=== PATIENT | female | born 1980 | race Caucasian/White ===

== ENCOUNTER 2021-08-31 10:54 | Outpatient (CLI) | payer OTHER, SELFPAY ==
--- NOTE | ~2021-08-31 | MM_ITS ---
EXAMINATION: MM screening deyvi BI w anastacio HISTORY: Screening mammogram TECHNIQUE: Craniocaudal and mediolateral oblique 3-D tomosynthesis images were obtained and synthetic 2-D images were generated. CAD analysis was submitted and interpreted. COMPARISON: 04/03/2006 BREAST PARENCHYMAL COMPOSITION: The breasts are extremely dense, which lowers the sensitivity of mamm ography. FINDINGS: There is no evidence of suspicious mass, calcification, or architectural distortion to sugg est malignancy in either breast. There has been no suspicious interval change. IMPRESSION: 1. No mammographic evidence of malignancy. 2. Recommend routine screening mammography in one year. BI-RADS Category 1: Negative Reviewed, dictated and finalized at location [facility]
== END 2021-08-31 10:55 | disposition home or self-care (01) ==
LOC: ANHIMG 10:56
PROVIDERS: PCP Physician Assistant; Visit Provider Nurse Practitioner Obstetrics & Gynecology
DX: Z12.31 Encounter for screening mammogram for malignant neoplasm of breast (principal)
CPT/HCPCS: 77063; 77067

== ENCOUNTER 2021-09-01 12:11 | Emergency (ER) | payer OTHER, SELFPAY ==
--- NOTE | ~2021-09-01 | CT_ITS ---
EXAMINATION: CT facial bones w con DATE: 09/01/2021 16:44 INDICATION: Right facial pain and swelling TECHNIQUE: Computed tomography (CT) of the facial bones and maxillofacial region was performed with 7 5 cc of Omnipaque 350 intravenous contrast. The dose-length product (DLP) was 264.93 mGy-cm. Automate d exposure control and iterative reconstruction technique were employed. COMPARISON: None. FINDINGS: There is a periapical abscess involving the right first mandibular molar. There is overlyin g soft tissue swelling of the right mandible. No soft tissue abscess is identified. No facial fractur e is identified. The visualized portions of the cervical spine are unremarkable. IMPRESSION: 1. Periapical abscess involving the right first mandibular molar with overlying soft tissue swelling. Reviewed, dictated and finalized at location [facility]
[2021-09-01 12:47] VITALS: BP 115/76; PULSE 80; RESP 18; TEMP 36.4; O2SAT 98
--- NOTE | 2021-09-01 15:25 | ED.DENTAL ---
HPI - Dental/Oral General Chief complaint: Dental/Oral Stated complaint: dental pain Time Seen by Provider: 09/01/21 13:58 Source: patient Mode of arrival: ambulatory Limitations: no limitations History of Present Illness HPI Narrative: Patient presents for evaluation of right-sided facial pain since 2200 last night. About 3 days ago she developed right lower dental pain. She thought that her symptoms were related to food stuck between her teeth. She was able to floss but did not have considerable improvement in her symptoms. She called her dentist, and was evaluated there yesterday. She indicates she had an x ray performed and there was infection noted around the site of a prior root canal. She was given scripts for augmentin and tylenol with codeine. She took her first dose of both medications and took a nap around 1600 yesterday. When she woke from sleep around 2200 she had swelling noted to the right side of her jaw. She reports nausea, particularly when she stands up. She denies any fever, chills or vomiting. She smokes about eight cigarettes per day. She states her pain level is 10/10. No additional complaints or concerns. Related Data Home Medications Medication Instructions Recorded Confirmed amoxicillin-pot clavulanate tablet 09/01/21 Allergies Allergy/AdvReac Type Severity Reaction Status Date / Time No Known Allergies Allergy Verified 09/01/21 12:50 Review of Systems Review of Systems: CONSTITUTIONAL: Denies fever, chills, or sweats. EYES: Denies visual changes, redness, or discharge. ENT: Reports right lower dental pain with right mandibular swelling. Denies rhinorrhea, congestion, sore throat, or otalgia. CARDIOVASCULAR: Denies chest pain, palpitations, or edema. RESPIRATORY: Denies cough or dyspnea. GASTROINTESTINAL: Reports nausea. Denies abdominal pain, vomiting, or diarrhea. GENITOURINARY: Denies dysuria or hematuria. SKIN: Denies rash or itching. MUSCULOSKELETAL: Denies back pain, joint pain, or myalgia. NEUROLOGIC: Denies headache, numbness, dizziness, or weakness. PSYCHIATRIC: Denies anxiety or depression. [facility] Past Medical History Medical History (Updated 09/01/21 @ 17:33 by Yakov Villanueva, ROBERT, ) No pertinent past medical history Surgical History Surgical History No pertinent past surgical history Family History Family History Mother No pertinent family history Social History Social History Smoking status: Current every day smoker Substance use: never Gender identity (if verbalized by the patient): Female Sexual Orientation (if Verbalized by the Patient): Straight or Heterosexual Spiritual care concerns: No Exam Narrative: GENERAL: Well-appearing, well-nourished, and in no acute distress. HEAD: Normocephalic, atraumatic. EYES: PERRLA and EOMI. ENT: Nares clear, no rhinorrhea or epistaxis. Mucous membranes moist. Palpable area of fluctuance adjacent to tooth #29 and tooth #30. + Trismus. Oropharynx without tonsillar hypertrophy exudate or other lesions. Bilateral TMs pearly conrad nonbulging NECK: Supple. No adenopathy or masses. No carotid bruits or JVD CHEST: Clear to auscultation. No respiratory distress. No wheezes rales or rhonchi HEART: Regular rate and rhythm. No murmur heard. Normal peripheral pulses. ABDOMEN: Soft, nontender, nondistended, normal active bowel sounds. EXTREMITIES: Normal range of motion. No edema. SKIN: Warm, dry, no rash. NEURO: No focal deficits. Alert and oriented x3. PSYCH: Normal mood and affect. Course Course Emergency Course: This is a 41-year-old female who presented with complaints of right mandibular swelling and pain. CT showed periapical abscess. I was able to drain the abscess here in the emergency department and patient tolerated well.
[2021-09-01] MEDS: HYDROcodone/acetaminophen (*CRX) 5-325 MG TABLET 2 TAB PO (15:51)
[2021-09-01 16:03] LABS: Basophils Absolute Auto 0.1 K/mm3 (0.0-0.1); Basophils Percent Auto 0.6 % (0.2-1.2); Eosinophils Percent Auto 0.3 % (0-4.4); Immature Granulocyte Absolute 0.03 K/mm3 (0.00-0.031); Immature Granulocyte Percent A 0.3 % (0-0.5); Lymphocytes Absolute Auto 1.46 K/mm3 (0.9-3.2); Lymphocytes Percent Auto 14.7 % (18.3-44.2); Mean Corpuscular HGB Conc 32.5 g/dl (32-36); Mean Corpuscular Hemoglobin 30.7 pg (26-34); Mean Corpuscular Volume 94.3 fl (80-100); Mean Platelet Volume 10.4 fl (7.4-10.4); Monocytes Absolute Auto 0.9 K/mm3 (0.1-0.6); Monocytes Percent Auto 8.9 % (2.6-8.5); Neutrophils Absolute Auto 7.5 K/mm3 (1.3-6.7); Neutrophils Percent Auto 75.2 % (45.5-73.1); Platelet Count Result 218 k/mm3 (150-375); Red Blood Count 4.24 M/mm3 (4.2-5.4)
[2021-09-01 16:13] LABS: Alanine Aminotransferase 10 U/L (4-35); Albumin Level 4.1 g/dL (3.5-5.1); Alkaline Phosphatase 96 U/L (38-126); Anion Gap 10 mmol/L (8-16); Aspartate Amino Transferase 18 U/L (14-36); Bilirubin,Total 1.1 mg/dL (0.2-1.3); Blood Urea Nitrogen 12 mg/dL (7-17); Calcium 8.8 mg/dL (8.4-10.2); Carbon Dioxide 19 mmol/L (22-30); Chloride 108 mmol/L (98-107); Estimated CRCL calculation 80 ml/min; Estimated Glomerular Filt Rate > 60; Glucose 93 mg/dL (65-110); Potassium 3.9 mmol/L (3.4-5.0); Sodium 137 mmol/L (137-145)
[2021-09-01 18:05] VITALS: PULSE 87; RESP 14
== END 2021-09-01 18:04 | disposition home or self-care (01) ==
PROVIDERS: Emergency Provider Nurse Practitioner; PCP Physician Assistant
DX: K04.7 Periapical abscess without sinus (principal); F17.200 Nicotine dependence, unspecified, uncomplicated
CPT/HCPCS: 36415; 70487; 80053; 81025; 85025; 99284; A9270; Q9967

== ENCOUNTER 2021-10-06 10:34 | Emergency (ER) | payer OTHER, SELFPAY ==
[2021-10-06 10:41] VITALS: BP 116/61; PULSE 61; RESP 16; TEMP 36.3; O2SAT 99
[2021-10-06 10:43] VITALS: BP 116/61; PULSE 61; RESP 16; TEMP 36.3; O2SAT 99
--- NOTE | 2021-10-06 10:43 | ED.DENTAL ---
HPI - Dental/Oral General Chief complaint: Dental/Oral Stated complaint: tooth pain Time Seen by Provider: 10/06/21 10:48 Mode of arrival: ambulatory Limitations: no limitations History of Present Illness HPI Narrative: 41-year-old female presents with concern for right lower tooth pain. She reports she has been having a problem with tooth #30 where she had a failed root canal . Reports she was seen by dentist approximately 1 month ago and the next day in the emergency room where she was treated for an abscess which was drained. Reports she took a course of Augmentin. Reports symptoms resolved. Reports in the same tooth she can now feel pain and a lump forming beneath the tooth in the jaw area. She reports she is planning to make an appointment with the dentist on Friday to have the tooth extracted. She reports she has been taking ibuprofen. She denies any difficulty swallowing, fever. MD Complaint: tooth pain Location: Tooth # (30) Related Data Home Medications Medication Instructions Recorded Confirmed levonorgestrel [Mirena] 1 insert INTRAUTERINE ONCE 10/06/21 10/06/21 Allergies Allergy/AdvReac Type Severity Reaction Status Date / Time No Known Allergies Allergy Verified 10/06/21 10:52 Review of Systems Review of Systems: CONSTITUTIONAL: Denies malaise, chills, sweats, or fever. EYES: Denies visual changes ENT: Denies rhinorrhea, congestion, sinus pain, otalgia or sore throat. Reports right lower dental pain CARDIOVASCULAR: Denies chest pain, palpitations RESPIRATORY: Denies cough or dyspnea. SKIN: Denies rash or itching. MUSCULOSKELETAL: Denies myalgia. NEUROLOGIC: Denies numbness, weakness, or headache. All systems reviewed & are unremarkable except as noted in HPI and below PMFSH Past Medical History Medical History (Updated 10/06/21 @ 10:56 by Aliza Rico NP) No pertinent past medical history Surgical History Surgical History No pertinent past surgical history Family History Family History Mother No pertinent family history Social History Social History Smoking status: Current every day smoker Substance use: never Gender identity (if verbalized by the patient): Female Sexual Orientation (if Verbalized by the Patient): Straight or Heterosexual Spiritual care concerns: No Comments At time of signature, agree with nursing past medical, surgical, social and family history. There is no relevant family history pertinent to the presenting complaint Exam Narrative: GENERAL: Well-appearing, well-nourished, and in no acute distress. HEAD: Normocephalic, atraumatic. EYES: PERRLA, sclera clear ENT: Nares clear, turbinates pink, no rhinorrhea or epistaxis. Mucous membranes moist. TM pearly conrad with sharp light reflex bilaterally; no tragal tenderness. Oropharynx without erythema or lesions. Tonsils not enlarged and without exudate. No missing teeth, broken teeth, caries obvious. No jaw swelling noted. No periapical abscess noted NECK: Supple. No lymphadenopathy. CHEST: No respiratory distress. Speaks in full sentences. HEART: Regular rate and rhythm. SKIN: Warm, dry, no visible rash. NEURO: Alert and oriented x3. PSYCH: Normal mood and affect Course Course Emergency Course: Patient is aware of diagnosis, understands and agrees to treatment plan. Anticipatory guidance given. Patient agrees to follow-up as directed and is aware of reasons to seek care at the emergency department. Portions of this record may have been created with voice recognition software Level of Care: Express Care Visit Vital Signs Vital signs: Vital Signs Temperature 97.4 F L 10/06/21 10:41 Pulse Rate 61 10/06/21 10:41 Respiratory Rate 16 10/06/21 10:41 Blood Pressure 116/61 10/06/21 10:41 Pulse Oximetry 99
== END 2021-10-06 11:00 | disposition home or self-care (01) ==
PROVIDERS: Emergency Provider Nurse Practitioner; PCP Physician Assistant
DX: K08.89 Other specified disorders of teeth and supporting structures (principal); F17.200 Nicotine dependence, unspecified, uncomplicated
CPT/HCPCS: 99213; G0463

== ENCOUNTER 2022-11-01 15:54 | Emergency (ER) | payer OTHER, SELFPAY ==
[2022-11-01 16:06] VITALS: BP 126/77; PULSE 70; RESP 16; TEMP 37.1; O2SAT 100
--- NOTE | 2022-11-01 16:41 | ED.EYEPROB ---
HPI - Eye Problem General Chief complaint: Eye Problems Stated complaint: Right Eye Pain Time Seen by Provider: 11/01/22 16:41 Source: patient Mode of arrival: ambulatory Limitations: no limitations History of Present Illness HPI Narrative: 42-year-old female presented for complaint of right eye redness, swelling, tenderness, and itching since yesterday. Most pain is to the lower lid. She denies foreign body, denies injury. She has applied cold compresses to the site. Denies vision changes, purulent drainage, photophobia, headache, dizziness, nausea, fevers or chills. Denies sick contacts. Does not wear contacts. chief complaint: eye pain Related Data Home Medications Medication Instructions Recorded Confirmed levonorgestrel 21 mcg/24 hours (8 1 insert intrauterine ONCE 10/06/21 11/01/22 yrs) 52 mg intrauterine device (Mirena) Allergies Allergy/AdvReac Type Severity Reaction Status Date / Time No Known Allergies Allergy Verified 11/01/22 16:06 Review of Systems Review of Systems: CONSTITUTIONAL: Denies body aches, fever, chills EYES:Endorses swelling, redness and pain to right eye ENT: Denies rhinorrhea, congestion, sore throat, or otalgia. CARDIOVASCULAR: Denies chest pain, palpitations SKIN: Denies rash, itching, or wounds. MUSCULOSKELETAL: Denies back pain, joint pain, or myalgia. NEUROLOGIC: Denies headache, numbness, tingling, or weakness. All systems reviewed & are unremarkable except as noted in HPI and below PMFSH Past Medical History Medical History No pertinent past medical history Surgical History Surgical History No pertinent past surgical history Family History Family History Mother No pertinent family history Social History Social History Smoking status: Current every day smoker Substance use: never Gender identity (if verbalized by the patient): Female Sexual Orientation (if Verbalized by the Patient): Straight or Heterosexual Spiritual care concerns: No Comments At time of signature, I have reviewed and agree with nursing past medical, surgical, social and family history unless otherwise noted. Please see nursing chart for further information. There is no relevant family history pertinent to the presenting complaint Exam Narrative: GENERAL: Well-appearing HEAD: Normocephalic, atraumatic. EYES: right lower eye lid swelling, tenderness, erythema, lower lid eversion shows internal hordeolum; no conjunctival injection, PERRLA, EOMI. Lid eversion shows no FB. ENT: Mucous membranes pink and moist. No rhinorrhea. TMs normal bilaterally. Throat normal. Uvula midline. CHEST: Clear to auscultation. SKIN: Warm, dry, no rash. Normal skin turgor. NEURO: No focal deficits. Alert and oriented x3 PSYCH: Normal affect. Course Course Emergency Course: Patient is aware of diagnosis, understands and agrees to treatment plan. Anticipatory guidance given. Patient agrees to follow-up as directed and is aware of reasons to seek care at the emergency department. Portions of this record may have been created with voice recognition software Level of Care: Express Care Visit Vital Signs Vital signs: Vital Signs Temperature 98.7 F 11/01/22 16:06 Pulse Rate 70 11/01/22 16:06 Respiratory Rate 16 11/01/22 16:06 Blood Pressure 126/77 11/01/22 16:06 Pulse Oximetry 100 11/01/22 16:06 Oxygen Delivery Room Air 11/01/22 16:06 Temperature 98.7 F 11/01/22 16:06 Pulse Rate 70 11/01/22 16:06 Respiratory Rate 16 11/01/22 16:06 Blood Pressure 126/77 11/01/22 16:06 Pulse Oximetry 100 11/01/22 16:06 Oxygen Delivery Room Air 11/01/22 16:06 MDM - Eye Problem MDM Narrative Medical decision making narrative
== END 2022-11-01 16:59 | disposition home or self-care (01) ==
PROVIDERS: Emergency Provider Nurse Practitioner Family; PCP Physician Assistant
DX: H00.022 Hordeolum internum right lower eyelid (principal); F17.200 Nicotine dependence, unspecified, uncomplicated
CPT/HCPCS: 99213; G0463

== ENCOUNTER 2025-05-30 15:54 | Emergency (ER) | payer SELFPAY ==
[2025-05-30 16:03] VITALS: BP 139/68; PULSE 92; RESP 18; TEMP 36.6; O2SAT 99
--- NOTE | 2025-05-30 16:07 | ED_ITS ---
HPI - Eye Problem General Chief complaint: Eye Problems Stated complaint: R eye issue Time Seen by Provider: 05/30/25 16:20 Source: patient, RN notes reviewed and old records reviewed Mode of arrival: ambulatory Limitations: no limitations History of Present Illness HPI Narrative: 44-year-old female presents to the [facility] with right eye upper lid swelling without significant redness. Denies any pain. States that started 2 days ago. No treatment prior to arrival Related Data Home Medications ?Medication ?Instructions ?Recorded ?Confirmed ?Last Taken ?Type levonorgestrel (Mirena) 1 insert intrauterine ONCE 0 10/06/21 11/01/22 Unknown History Allergies Allergy/AdvReac Type Severity Reaction Status Date / Time No Known Allergies Allergy Verified 05/30/25 16:03 Review of Systems Review of Systems: All systems reviewed & are unremarkable except as noted in HPI and below Constitutional: Constitutional: Reports no additional constitutional complaints Eyes: Eyes: Reports as per HPI ENT: Reports system reviewed and no additional complaints, except as documented Cardiovascular: Cardiovascular: Reports no additional cardiovascular complaints, Denies chest pain and Denies dyspnea Respiratory: Respiratory: Reports no additional respiratory complaints, Denies chest congestion, Denies cough and Denies dyspnea Musculoskeletal: Musculoskeletal: Reports no additional musculoskeletal complaints Integumentary/Breasts: Skin/Breast: Reports system reviewed and no additional complaints, except as docu PMFSH Past Medical History Medical History No pertinent past medical history Surgical History Surgical History No pertinent past surgical history Family History Family History Mother No pertinent family history Social History Social History Smoking status: Current every day smoker Substance use: never Gender identity (if verbalized by the patient): Female Sexual Orientation (if Verbalized by the Patient): Straight or Heterosexual Spiritual care concerns: No Comments At the time of my signature, I reviewed and agree with the nursing past medical, surgical, social, and family history. There is no relevant family history pertinent to the patient complaint. Exam Const: General: cooperative, healthy appearing, comfortable, no acute distress, well developed, alert and well nourished Nutritional Appearance: well nourished Orientation/consciousness: patient oriented x3 Limitations: no limitations HENMT: Head: normal to inspection Ears: hearing grossly normal bilaterally, external ears normal, TM's normal bilaterally, EAC's normal, mastoids normal and no periauricular adenopathy Throat: posterior oropharynx normal, uvula midline and no uvular edema Eyes: General: appearance normal, both eyes and all related structures Alignment and Position: alignment normal Eyelids: eyelid abnormality right upper eyelid inflamed cyst and swelling (Mild); without erythema, without foreign bodies, without lacerations and no crusting or scaling of lid margins Neck: Neck: normal visual inspection, full ROM, no lymphadenopathy and no meningeal signs Chest: Chest palpation & inspection: normal inspection of the chest Resp: Effort & Inspection: normal respiratory effort and able to speak in complete sentences Auscultation: clear to auscultation bilaterally, no crackles, no rales, no rhonchi and no wheezes Cardio: Rate: regular rate Skin: General skin exam: normal color and no rashes or lesions noted Neuro: General: patient oriented x3, gait normal, moves all extremities and no meningeal signs Cognition (Neuro): normal cognition Speech: normal speech Gait exam (Neuro): Normal gait present Extrem: General: normal to inspection, full ROM, capillary refill normal and normal gait Psych: Appearance: grossly normal and well kempt Mental Status: mental status grossly normal Speech and movement: Normal speech and movement present and Clear speech present Affect: normal affect Attitude: cooperative Course Course Level of Care: Express Care Visit Vital Signs Vital signs: Vital Signs Temperature 97.9 F 05/30/25 16:03 Pulse Rate 92 05/30/25 16:03 Respiratory Rate 18 05/30/25 16:03 Blood Pressure 139/68 05/30/25 16:03 Pulse Oximetry 99 05/30/25 16:03 Oxygen Delivery Room Air 05/30/25 16:03 Temperature 97.9 F 05/30/25 16:03 Pulse Rate 92 05/30/25 16:03 Respiratory Rate 18 05/30/25 16:03 Blood Pressure 139/68 05/30/25 16:03 Pulse Oximetry 99 05/30/25 16:03 Oxygen Delivery Room Air 05/30/25 16:03 Reviewed MDM - Eye Problem MDM Narrative Medical decision making narrative: Patient sitting exam room. Patient is nontoxic, vitals stable. Patient presents with mild swelling to the right eyelid. Possible small stye forming. Patient is appropriate for outpatient treatment with close follow-up Discharge instructions reviewed with patient, as well as provided in writing per nursing staff. The instructions also include specific and strict return/GO TO THE ER as well as f/u information. All questions have been answered, and the patient deny any further questions with discharge and discharge plan. Some parts of this dictation were generated by voice recognition software and may contain typographical and/or grammatical inaccuracies. Differential Diagnosis Differential diagnosis: Likely corneal abrasion, conjunctivitis and other Critical Care Time Critical Care Time Critical Care Time: No Discharge Plan Discharge Clinical Impression: Hordeolum externum (stye) Qualifiers: Laterality: right Eyelid: upper Qualified Code(s): H00.011 - Hordeolum externum right upper eyelid Patient Disposition: Home Condition: Stable Instructions: Antibiotic Form, Jaime (ED) Additional Instructions: Apply a warm damp compress to your affected eye. Be sure to use a clean cloth each time Use the eye ointment to rub on the lash line of the upper lid right eye 3 times a day Maintain good hygiene and only touch your eyes with freshly washed hands. If no improvement you should follow-up with an eye doctor in the next 3-4 days. [facility]: [place]- [phone] [facility] [phone] [facility] [phone] [place]: [facility] [phone] or [phone] [facility] [phone] [facility] [phone] [facility] [phone] [facility]- [phone] Patient Language: Gabonese Prescriptions: New erythromycin 5 mg/gram (0.5 %) ointment 0.5 inch RIGHT EYE TID Qty: 3.5 0RF No Action Mirena 20 mcg/24 hours (7 yrs) 52 mg Intrauterine Device 1 insert INTRAUTERINE ONCE ofloxacin 0.3 % drops See Rx Instructions EACH EYE .COMPLEX Qty: 5 0RF Rx Instructions: put 1-2 drps into affected eye(s) every 2-4 h x 2 days, then 1-2 drps 4 times/day days 3-7 ketorolac 0.5 % drops 1 drp RIGHT EYE Q6H PRN (Reason: itching) Qty: 3 0RF Follow-up/Referrals: Rick,Sg Degroot MD [Primary Care Provider] Stand Alone Forms: Work/School Release IP Time of Disposition: 16:27
== END 2025-05-30 16:33 | disposition home or self-care (01) ==
PROVIDERS: Emergency Provider Nurse Practitioner; PCP Internal Medicine Gastroenterology
DX: H00.011 Hordeolum externum right upper eyelid (principal); F17.200 Nicotine dependence, unspecified, uncomplicated
CPT/HCPCS: 99213; G0463